=== PATIENT | male | born 1980 | race Caucasian/White ===

== ENCOUNTER 2017-05-31 17:19 | Emergency (ER) | payer OTHER ==
[~2017-05-31] VITALS: Ht 170.2 cm; Wt 217.0 kg
[2017-05-31] MEDS ORDERED: CETI-290 PO (17:32)
[2017-05-31] MEDS ORDERED: RANI150T7 PO (17:32)
[2017-05-31] MEDS ORDERED: ACET650T9 PO (17:32)
[2017-05-31] MEDS ORDERED: KETOROLAC TROMETHAMINE 60 MG/2 ML VIAL IM ONE (20:30)
[2017-05-31 21:01] VITALS: BP 129/86
== END 2017-05-31 21:08 | disposition home or self-care (01) ==
LOC: EMS 17:20
DX: M66.241 Spontaneous rupture of extensor tendons, right hand (principal)
CPT/HCPCS: 29125; 73130; 96372; 99284; J1885

== ENCOUNTER 2021-03-18 16:24 | Emergency (ER) | payer OTHER ==
[~2021-03-18] VITALS: Ht 175.3 cm; Wt 81.8 kg
[~2021-03-18 16:24] MED LIST: ACET650T9 PO; CETI-450 PO; RANI150T7 PO
[2021-03-18] MEDS ORDERED: KETOROLAC TROMETHAMINE 60 MG/2 ML VIAL IM ONE (18:45)
[2021-03-18] MEDS ORDERED: PredniSONE 20 MG TABLET PO ONE (18:45)
[2021-03-18 19:38] LABS: BASOPHILS % (AUTO) 0.5 % (0.0-2.0); EOSINOPHILS % (AUTO) 1.8 % (1.0-6.0); HEMATOCRIT 42.6 % (41-53); HEMOGLOBIN 14.7 g/dL (13.5-17.5); LYMPHOCYTES # (AUTO) 2.1 K/uL (1.0-4.8); LYMPHOCYTES % (AUTO) 32.6 % (22.0-44.0); MEAN CORPUSCULAR HEMOGLOBIN 29.2 pg (26.0-34.0); MEAN CORPUSCULAR HGB CONC 34.6 G/dL (31.0-37.0); MEAN CORPUSCULAR VOLUME 85 fL (80-100); MONOCYTES # (AUTO) 0.7 K/uL (0.1-1.0); MONOCYTES % (AUTO) 10.6 % (2.0-9.0); NEUTROPHILS # (AUTO) 3.4 K/uL (1.8-7.7); NEUTROPHILS % (AUTO) 54.5 % (40.0-70.0); PLATELET COUNT (AUTO) 171 K/uL (150-450); RED BLOOD CELL COUNT(AUTO) 5.04 MIL/uL (4.50-5.90)
[2021-03-18 21:07] LABS: ERYTHROCYTE SEDIMENTATION RATE 21 MM/HR (0-15)
[2021-03-18 21:16] VITALS: BP 159/80
== END 2021-03-18 21:16 | disposition home or self-care (01) ==
LOC: EMS 16:32
DX: M25.531 Pain in right wrist (principal); Z79.899 Other long term (current) drug therapy
CPT/HCPCS: 29125; 36415; 73110; 84550; 85025; 85651; 96372; 99284; J1885; J7512